=== PATIENT | female | born 1960 | race Caucasian/White ===

== ENCOUNTER → 2021-01-16 | Outpatient (CLI) | payer OTHER ==
--- NOTE | 2021-01-16 11:21 | KCIC ---
EXAM: CT coronary artery calcium screening; radiologist over read. HISTORY: Mixed hyperlipidemia. History of heart disease. TECHNIQUE: Computed tomographic images of the chest were obtained without contrast. Multiplanar refor matting was performed. *One or more of the following individualized dose reduction techniques were utilized for this examina tion: 1. Automated exposure control. 2. Adjustment of the mA and/or kV according to patient size. 3. Use of iterative reconstruction technique. COMPARISON: None. FINDINGS: The heart is normal in size. The visualized aorta is normal in caliber. There is no lymphad enopathy. There is no infiltrate, pleural effusion or pneumothorax. There is no suspicious pulmonary nodule. There is minimal posterior dependent atelectasis. There are simple appearing hepatic cysts, t he largest of which measures 4.4 cm and is partially included on the [id number]. There is no suspi cious osseous lesion. Coronary artery calcium score: 0. IMPRESSION: 1. Coronary artery calcium score of 0. No identifiable calcified atherosclerotic plaque. 2. No significant incidental thoracic finding. 3. Simple appearing hepatic cysts. Electronically signed by: Dominga Thakur MD (01/16/2021 11:18 AM) [id number]
== END ==
LOC: KCIC CT 10:51
PROVIDERS: ATTEND Family Medicine
DX: J98.11 Atelectasis (principal); E78.5 Hyperlipidemia, unspecified
CPT/HCPCS: 75571